=== PATIENT | male | born 1940 ===

== ENCOUNTER 2017-06-03 16:45 | Emergency (ER) | payer SELFPAY ==
[2017-06-03] MEDS ORDERED: LR(*) 1000 ML BAG 1,000 ML IV ONE (16:49)
[2017-06-03] MEDS ORDERED: ASPIRIN 81 MG CHEW PO ONE (16:50)
[2017-06-03] MEDS ORDERED: SODIUM BICARB 8.4% 50 MEQ/50ML IV ONE (16:55)
[2017-06-03] MEDS ORDERED: PROPOFOL(*)1000 MG/100 ML VIAL 100 ML IV PRN (16:55)
[2017-06-03 17:03] LABS: PLATELET COUNT, AUTOMATED 110 K/uL (150-450)
[2017-06-03] MEDS ORDERED: PROPOFOL EMUL 10MG/ML 20 ML VL IV ONE (17:05)
[2017-06-03] MEDS ORDERED: IOPAMIDOL 76% 100 ML INFUS BTL 100 ML ONE (17:07)
[2017-06-03] MEDS ORDERED: NS 0.9% 20 ML SDV 100 ML ONE (17:07)
--- NOTE | 2017-06-03 17:10 | ER Report ---
History and Physical Time Seen By MD: 16:50 HPI/ROS CHIEF COMPLAINT: cardiac arrest HISTORY OF PRESENT ILLNESS: EMS called for pt how collapsed and was unresponsive at [facility] station. CPR was started at scene. PT had no pulse on ems arrival. Otis tube was placed by ems, I/O and lucus for compressions. While pulling into ems bay pt started in VT. Pt was shocked with 200 J and then got a rhythm. PT intubated after succs placed. Pt then went back into VT which appeared to be torsodes like so magnesium was given and shocked at 300J. PT back in NSR in non specific junctional coduction delay. REVIEW OF SYSTEMS: Cardiac arrest. Past Medical/Surgical History unknown Reviewed Nurses Notes: Yes Old Medical Records Reviewed: Yes Social History of unknown Hx Smoking: No (unknwon) Constitutional Vital Sign - Last 24 Hours 06/03/17 06/03/17 06/03/17 06/03/17 17:00 17:38 17:38 17:44 B/P (MAP) 95/62 (73) 95/62 (73) 104/83 (90) FiO2 50.0 06/03/17 06/03/17 17:45 17:47 Pulse 89 B/P (MAP) 107/73 (84) Pulse Ox 93 Physical Exam General Appearance: The patient arrived purple faced and mottled. unresponsive being bagged and cpr Eyes: Pupils 1mm b/l ENT: no pharyngeal erythema or exudates,TM are nl b/l without hemotympanums Respiratory: breathsounds by bagging efrain symmetrical Cardiovascular: no pulse on arrival Gastrointestinal: Abdomen is soft and non tender, no masses Skin: mottled on arrival Neuro: GCS 5 DIFFERENTIAL DIAGNOSIS: After history and physical exam differential diagnosis was considered for cardiac arrest, pe, electrolyte abnl, aaa Medical Decision Making Data Points Result Diagram: 06/03/17 1802 06/03/17 180 Laboratory Hematology Test 06/03/17 16:49 06/03/17 17:06 06/03/17 17:35 06/03/17 18:02 Prothrombin Time 21.0 seconds (12.0-14.4) Prothromb Time International Ratio 1.77 Activated Partial Thromboplast Time 47 seconds (23-35) D-Dimer Quantitative (PE/DVT) 2.43 ug/ml (0-0.50) Total Bilirubin < 0.1 mg/dl (0.2-1.3) Aspartate Amino Transf (AST/SGOT) 15 U/L (0-35) Alanine Aminotransferase (ALT/SGPT) 32 U/L (0-56) Alkaline Phosphatase 32 U/L (0-126) B-Type Natriuretic Peptide 42 pg/ml (0-100) Total Protein 2.3 gm/dl (6.3-8.2) Albumin 1.1 g/dl (3.5-5.0) Whole Blood Glucose 204 mg/DL (75-110) Urine Color Yellow Urine Clarity Slightly-cloudy Urine pH 6.0 pH (4.8-9.5) Urine Specific [place] 1.011 Urine Protein 500 mg/dL (NEGATIVE) Urine Glucose (UA) 500 mg/dL (NEGATIVE) Urine Ketones Negative mg/dL (NEGATIVE) Urine Blood Small (NEGATIVE) Urine Nitrite Negative (NEGATIVE) Urine Bilirubin Negative (NEGATIVE) Urine Urobilinogen Negative mg/dL (0.2-1.9) Urine Leukocyte Esterase Negative (NEGATIVE) Urine RBC 9 /HPF (0-2/HPF) Urine WBC 11 /HPF (0-5/HPF) Urine Squamous Epithelial Cells Few /LPF (NONE-FEW) Urine Bacteria Negative /HPF (NONE-FEW) Urine Hyaline Casts Many /LPF (NONE-FEW) Urine Granular Casts Few /LPF (NONE) Urine Mucus None /HPF (NONE-FEW) Urine Opiates Screen Negative Urine Barbiturates Screen Negative Ur Tricyclic Antidepressants Screen Negative Urine Phencyclidine Screen Negative Urine Amphetamines Screen Negative Urine Benzodiazepines Screen Negative Urine Cocaine Screen Negative Urine Cannabinoids Screen Negative Red Blood Count 4.44 M/uL (4.00-5.60) Mean Corpuscular Volume 93.6 fL (80.0-96.0) Mean Corpuscular Hemoglobin 31.1 pg (26.0-33.0) Mean Corpuscular Hemoglobin Concent 33.3 g/dL (32.0-36.0) Red Cell Distribution Width 14.0 % (11.5-14.5) Mean Platelet Volume 8.7 fL (7.2-11.1) Neutrophils (%) (Auto) 80.3 % (39.4-72.5) Lymphocytes (%) (Auto) 11.2 % (17.6-49.6) Monocytes (%) (Auto) 6.8 % (4.1-12.4) Eosinophils (%) (Auto) 1.2 % (0.4-6.7) Basophils (%) (Auto) 0.5 % (0.3-1.4) Nucleated RBC Relative Count (auto) 0.1 /100WBC Neutrophils # (Auto) 11.9 K/uL (2.0-7.4) Lymphocytes # (Auto) 1.7 K/uL (1.3-3.6) Monocytes # (Auto) 1.0 K/uL (0.3-1.0) Eosinophils # (Auto) 0.2 K/uL (0.0-0.5) Basophils # (Auto) 0.1 K/uL (0.0-0.1) Nucleated RBC Absolute Count (auto) 0.01 K/uL Sodium Level 140 mmol/L (137-145) Potassium Level 3.8 mmol/L (3.5-5.0) Chloride Level 104 mmol/L (98-107) Carbon Dioxide Level 23 mmol/L (22-30) Blood Urea Nitrogen 15 mg/dl (9-21) Creatinine 1.00 mg/dl (0.66-1.25) Glomerular Filtration Rate Calc > 60.0 Random Glucose 146 mg/dl (75-110) Lactate 5.7 mmol/L (0.7-2.1) Calcium Level 9.1 mg/dl (8.4-10.2) Magnesium Level 2.1 mg/dl (1.7-2.2) Total Creatine Kinase 70 U/L (55-170) Creatine Kinase MB 41 U/L Creatine Kinase MB % 59 % Troponin I 0.087 ng/ml Test 06/03/17 18:18 Blood Gas Puncture Site Right radial Blood Gas Patient Temperature 39.4 DEGREES Arterial Blood pH 7.20 (7.35-7.45) Arterial Blood Partial Pressure CO2 55 mmHg (32-37) Arterial Blood Partial Pressure O2 118 mmHg (60-80) Arterial Blood HCO3 21 mmol/L (20-26) Arterial Blood Oxygen Saturation 97 % (92-100) Arterial Blood Base Excess -6.0 mmol/L Vinh Test Acceptable Oxygen Liters/Minute 100 Chemistry Test 06/03/17 16:49 06/03/17 17:06 06/03/17 17:35 06/03/17 18:02 Prothrombin Time 21.0 seconds (12.0-14.4) Prothromb Time International Ratio 1.77 Activated Partial Thromboplast Time 47 seconds (23-35) D-Dimer Quantitative (PE/DVT) 2.43 ug/ml (0-0.50) Total Bilirubin < 0.1 mg/dl (0.2-1.3) Aspartate Amino Transf (AST/SGOT) 15 U/L (0-35) Alanine Aminotransferase (ALT/SGPT) 32 U/L (0-56) Alkaline Phosphatase 32 U/L (0-126) B-Type Natriuretic Peptide 42 pg/ml (0-100) Total Protein 2.3 gm/dl (6.3-8.2) Albumin 1.1 g/dl (3.5-5.0) Whole Blood Glucose 204 mg/DL (75-110) Urine Color Yellow Urine Clarity Slightly-cloudy Urine pH 6.0 pH (4.8-9.5) Urine Specific [place] 1.011 Urine Protein 500 mg/dL (NEGATIVE) Urine Glucose (UA) 500 mg/dL (NEGATIVE) Urine Ketones Negative mg/dL (NEGATIVE) Urine Blood Small (NEGATIVE) Urine Nitrite Negative (NEGATIVE) Urine Bilirubin Negative (NEGATIVE) Urine Urobilinogen Negative mg/dL (0.2-1.9) Urine Leukocyte Esterase Negative (NEGATIVE) Urine RBC 9 /HPF (0-2/HPF) Urine WBC 11 /HPF (0-5/HPF) Urine Squamous Epithelial Cells Few /LPF (NONE-FEW) Urine Bacteria Negative /HPF (NONE-FEW) Urine Hyaline Casts Many /LPF (NONE-FEW) Urine Granular Casts Few /LPF (NONE) Urine Mucus None /HPF (NONE-FEW) Urine Opiates Screen Negative Urine Barbiturates Screen Negative Ur Tricyclic Antidepressants Screen Negative Urine Phencyclidine Screen Negative Urine Amphetamines Screen Negative Urine Benzodiazepines Screen Negative Urine Cocaine Screen Negative Urine Cannabinoids Screen Negative White Blood Count 14.8 k/uL (4.5-11.0) Red Blood Count 4.44 M/uL (4.00-5.60) Hemoglobin 13.8 g/dL (14.0-18.0) Hematocrit 41.6 % (42.0-52.0) Mean Corpuscular Volume 93.6 fL (80.0-96.0) Mean Corpuscular Hemoglobin 31.1 pg (26.0-33.0) Mean Corpuscular Hemoglobin Concent 33.3 g/dL (32.0-36.0) Red Cell Distribution Width 14.0 % (11.5-14.5) Platelet Count 188 K/uL (150-450) Mean Platelet Volume 8.7 fL (7.2-11.1) Neutrophils (%) (Auto) 80.3 % (39.4-72.5) Lymphocytes (%) (Auto) 11.2 % (17.6-49.6) Monocytes (%) (Auto) 6.8 % (4.1-12.4) Eosinophils (%) (Auto) 1.2 % (0.4-6.7) Basophils (%) (Auto) 0.5 % (0.3-1.4) Nucleated RBC Relative Count (auto) 0.1 /100WBC Neutrophils # (Auto) 11.9 K/uL (2.0-7.4) Lymphocytes # (Auto) 1.7 K/uL (1.3-3.6) Monocytes # (Auto) 1.0 K/uL (0.3-1.0) Eosinophils # (Auto) 0.2 K/uL (0.0-0.5) Basophils # (Auto) 0.1 K/uL (0.0-0.1) Nucleated RBC Absolute Count (auto) 0.01 K/uL Glomerular Filtration Rate Calc > 60.0 Lactate 5.7 mmol/L (0.7-2.1) Calcium Level 9.1 mg/dl (8.4-10.2) Magnesium Level 2.1 mg/dl (1.7-2.2) Total Creatine Kinase 70 U/L (55-170) Creatine Kinase MB 41 U/L Creatine Kinase MB % 59 % Troponin I 0.087 ng/ml Test 06/03/17 18:18 Blood Gas Puncture Site Right radial Blood Gas Patient Temperature 39.4 DEGREES Arterial Blood pH 7.20 (7.35-7.45) Arterial Blood Partial Pressure CO2 55 mmHg (32-37) Arterial Blood Partial Pressure O2 118 mmHg (60-80) Arterial Blood HCO3 21 mmol/L (20-26) Arterial Blood Oxygen Saturation 97 % (92-100) Arterial Blood Base Excess -6.0 mmol/L Vinh Test Acceptable Oxygen Liters/Minute 100 Coagulation Test 06/03/17 16:49 Prothrombin Time 21.0 seconds Prothromb Time International Ratio 1.77 Activated Partial Thromboplast Time 47 seconds D-Dimer Quantitative (PE/DVT) 2.43 ug/ml Toxicology Test 06/03/17 17:35 Urine Opiates Screen Negative Urine Barbiturates Screen Negative Ur Tricyclic Antidepressants Screen Negative Urine Phencyclidine Screen Negative Urine Amphetamines Screen Negative Urine Benzodiazepines Screen Negative Urine Cocaine Screen Negative Urine Cannabinoids Screen Negative Urinalysis Test 06/03/17 17:35 Urine Color Yellow Urine Clarity Slightly-cloudy Urine pH 6.0 pH (4.8-9.5) Urine Specific [place] 1.011 Urine Protein 500 mg/dL (NEGATIVE) Urine Glucose (UA) 500 mg/dL (NEGATIVE) Urine Ketones Negative mg/dL (NEGATIVE) Urine Blood Small (NEGATIVE) Urine Nitrite Negative (NEGATIVE) Urine Bilirubin Negative (NEGATIVE) Urine Urobilinogen Negative mg/dL (0.2-1.9) Urine Leukocyte Esterase Negative (NEGATIVE) Urine RBC 9 /HPF (0-2/HPF) Urine WBC 11 /HPF (0-5/HPF) Urine Squamous Epithelial Cells Few /LPF (NONE-FEW) Urine Bacteria Negative /HPF (NONE-FEW) Urine Hyaline Casts Many /LPF (NONE-FEW) Urine Granular Casts Few /LPF (NONE) Urine Mucus None /HPF (NONE-FEW) EKG/Imaging Imaging initial ekg: nsr @ 98 with non specific sg wave changes and incomplete interventricular conduction delay leaning towards lbbb. CXR tube in place about 1-2 cm above the maribell, will move back 1cm. ED Course/Re-evaluation Clinical Indication for ER IV: IV Access ED Course Pt intubated on arrival using succs 7.5 et tube 23 at lip and good breath sounds b/l Code was started. Pt recieved total of two epi shocked twice. Magnesium and bicarb. pulse came back. ekg obtained. Pt sent to CT. R femoral central line placed under semi-sterile area due to code. all lines flushed without difficulty. 06/03/2017 5:27:[address] life flight they are flying to [place]. will check to see if [place] has a icu bed. 06/03/2017 6:14:21 pm Spoke with [facility] who would not accept pt unless we had repeat bmp and all the cat scan results. Would like to be called back. Called Dr. Ortega at [facility] critical care who will accept pt now. Will attempt to fly. 06/03/2017 6:22:24 pm Currently no one is flying helicopter or fixed wing. Nursing production department supervisor made aware and finding transport. 06/03/2017 6:34:40 pm repeat bmp is normal. I suspect initial labs drawn in code were drawn in saline line. All new blood sent to lab 06/03/2017 6:39:42 pm multiple attempts to obtain ekg was unsuccessful due to pt moving. Propofol was changed to ketamine due to pts pressure on propofol. Ketamine drip ordered. will give a dose vecuronium to paralyse for transport as well as to obtain ekg now. 06/03/2017 6:50:47 pm Repeat ekg after vecuronium was give showed: nsr @ 90 with non specific stwave changes. Nursing production department supervisor found a nurse for transport. awaiting ems arrival for pt to be transfered. 06/03/2017 6:56:23 pm CTA chest limited due to movement but no obvious aneurysm or pe 06/03/2017 7:24:[address] Ortega from [facility]. reviewed the repeat labs, ekg and ct results. He recommend hold off on the heparin gtt. bolus and gtt held. EMS here and pt is being brought by [facility] via ambulance due to inclement weather with flying. 06/03/2017 7:31:26 pm Spoke with sister, Korin Valadez at is aware he is critical. THey live in [place]. Home Cell Decision to Disposition Date: Jun 03, 2017 Decision to Disposition Time: 19:33 Critical Care Time I spent a total of 60 minutes of critical care time in obtaining history, performing a physical exam, bedside monitoring of interventions, collecting and interpreting tests and discussion with consultants but not including time spent performing procedures. Depart Departure Latest Vital Signs Vital Signs Date Time Temp Pulse Resp B/P (MAP) Pulse Ox O2 Delivery O2 Flow Rate FiO2 06/03/17 17:47 107/73 (84) 06/03/17 17:45 89 93 06/03/17 17:00 50.0 Impression: Primary Impression: Cardiac arrest Condition: Critical Disposition: [facility] TO [facility] OMAR EVANS DO Jun 03, 2017 17:10
[2017-06-03] MEDS ORDERED: KCL (*) 20 MEQ/100 ML PREMIX 100 ML IV ONE (17:20)
[2017-06-03] MEDS ORDERED: CALCIUM CL 100 MG/1 ML SYR 1,000 MG in NS(*) 0.9% 100 ML BAG 100 ML IVPB ONE (17:20)
[2017-06-03 17:27] LABS: INR 1.77
[2017-06-03] MEDS ORDERED: KETAMINE HCL 500 MG/5 ML VIAL ONE (18:03)
[2017-06-03] MEDS ORDERED: KETAMINE HCL 200 MG/20 ML MDV IVP ONE (18:05)
--- NOTE | 2017-06-03 18:07 | RADIOLOGY IMAGING REPORT ---
FACILITY: [facility] PATIENT NAME: Husam Dela Cruz : 1940 MR: [id number] V: [id number] EXAM DATE: ORDERING PHYSICIAN: OMAR EVANS TECHNOLOGIST: Location: [facility] Patient: Husam Dela Cruz : 1940 Visit/Account:[id number] Date of Sevice: 06/03/2017 EXAMINATION: Portable AP Chest HISTORY: Chest pain. COMPARISON: None. FINDINGS: Endotracheal tube present, with tip approximately 2 cm above the maribell. Normal and symmetric lung volumes. There are fibrotic appearing interstitial changes bilaterally. No focal consolidation or pleural effusion. No pneumothorax. Borderline cardiac enlargement, with normal cardiomediastinal contours. Aortic calcification. IMPRESSION: 1. Endotracheal tube tip approximately 2 cm above the maribell. 2. Fibrotic appearing interstitial changes in both lungs. No focal consolidation. Report Dictated By: Mynor Brady MD at 06/03/2017 6:00 PM Report E-Signed By: Mynor Brady MD at 06/03/2017 6:02 PM WSN:[id number]
[2017-06-03] MEDS ORDERED: KETAMINE HCL(*)500MG/5ML VIAL 500 MG in NS(*) 0.9% 500 ML BAG 495 ML IVPB ONE (18:15)
[2017-06-03] MEDS ORDERED: NS(*) 0.9% 500 ML BAG 500 ML IV ONE (18:20)
[2017-06-03] MEDS ORDERED: KETAMINE HCL 500 MG/5 ML VIAL IVP ONE (18:20)
--- NOTE | 2017-06-03 18:33 | RADIOLOGY IMAGING REPORT ---
FACILITY: [facility] PATIENT NAME: Husam eDla Cruz : 1940 MR: [id number] V: [id number] EXAM DATE: ORDERING PHYSICIAN: OMAR EVANS TECHNOLOGIST: Location: [facility] [place] Patient: Husam Dela Cruz : 1940 Visit/Account:[id number] Date of Sevice: 06/03/2017 EXAMINATION: Head CT without intravenous contrast HISTORY: Cardiac arrest. Fell. Hit head. COMPARISON: None. TECHNIQUE: Contiguous axial images were obtained from the skull base to the vertex without intraven ous contrast. Sagittal and coronal reformatted images are also submitted. One of the following dose optimization techniques was utilized in the performance of this exam: Autom ated exposure control; adjustment of the mA and/or kV according to the patient's size; or use of an i terative reconstruction technique. Specific details can be referenced in the facility's radiology C T exam operational policy. FINDINGS: Brain and intracranial structures: Ventricles, sulci, and cisterns are normal in size. Caal-white ma tter differentiation is maintained. No midline shift, acute hemorrhage, acute infarct, or mass. Vessels: Mild calcifications of the carotid siphons and right vertebral artery. Calvarium / scalp: Right parietal-occipital scalp hematoma. No acute fracture. Skull base / visualized face: Endotracheal tube is partially visualized. Mild rightward deviation of the nasal septum. Visualized sinuses / orbits: Trace mucosal thickening in the ethmoid air cells. The lenses have been extracted or replaced. IMPRESSION: Right parietal-occipital scalp hematoma. No acute intracranial abnormality. Report Dictated By: Darrius Weiner MD at 06/03/2017 6:23 PM Report E-Signed By: Darrius Weiner MD at 06/03/2017 6:28 PM WSN:[id number]
--- NOTE | 2017-06-03 18:37 | RADIOLOGY IMAGING REPORT ---
FACILITY: [facility] [place] PATIENT NAME: Husam Dela Cruz : 1940 MR: [id number] V: [id number] EXAM DATE: ORDERING PHYSICIAN: OMAR EVANS TECHNOLOGIST: Location: [facility] Patient: Husam Dela Cruz : 1940 Visit/Account:[id number] Date of Sevice: 06/03/2017 EXAMINATION: CT Cervical spine without intravenous contrast HISTORY: Cardiac arrest. Fell, hit head. COMPARISON: None. TECHNIQUE: Axial images were obtained from the skull base through the upper thoracic spine without I V contrast administration. Coronal and sagittal reformatted images were obtained from the axial [facility] e data. One of the following dose optimization techniques was utilized in the performance of this exam: Autom ated exposure control; adjustment of the mA and/or kV according to the patient's size; or use of an i terative reconstruction technique. Specific details can be referenced in the facility's radiology C T exam operational policy. FINDINGS: Alignment: Slight anterolisthesis of C3 on C4 and of C6 on C7, likely on a degenerative basis. Cranio-cervical junction: Osteophytes at the atlantodental articulation. Vertebral bodies: No evidence of acute fracture. Posterior elements: Facet hypertrophy throughout the cervical spine. No acute fracture. Hardware: Endotracheal tube is partially visualized. Disc Spaces: Endplate osteophytes at multiple levels. Soft tissues: No paraspinal soft tissue swelling or hematoma. Right occipital scalp hematoma. Calcifi ed plaque at the carotid bifurcations. Visualized upper chest: Calcified plaque at the aortic arch. Chronic interstitial changes in the lung s. IMPRESSION: No acute fracture of the cervical spine. Multilevel degenerative changes in the cervical spine. Report Dictated By: Darrius Weiner MD at 06/03/2017 6:28 PM Report E-Signed By: Darrius Weiner MD at 06/03/2017 6:34 PM WSN:[id number]
[2017-06-03] MEDS ORDERED: VECURONIUM BROM(*) 10 MG/VIAL 10 MG in NS(*) 0.9% 100 ML BAG 100 ML IV ONE ×2 (18:40→19:15)
[2017-06-03 18:42] LABS: PLATELET COUNT, AUTOMATED 188 K/uL (150-450)
--- NOTE | 2017-06-03 18:49 | RADIOLOGY IMAGING REPORT ---
FACILITY: [facility] [place] PATIENT NAME: Husam Dela Cruz : 1940 MR: [id number] V: [id number] EXAM DATE: ORDERING PHYSICIAN: OMAR EVANS TECHNOLOGIST: [place] [facility] [place]: Husam Dela Cruz : 1940 Visit/Account:[id number] Date of Sevice: 06/03/2017 CT ANGIOGRAM OF THE CHEST WITH INTRAVENOUS CONTRAST, PE PROTOCOL DATE OF EXAM: 06/03/2017 17:00 COMPARISON: Chest radiograph of the same day. INDICATION: cardiac arrest. TECHNIQUE: Contrast enhanced chest CT performed during the injection of 100 ml of Isovue-370. Three- dimensional (MIP) reconstructions were performed. FINDINGS: Imaging is degraded by motion, but there is no apparent pulmonary trochanter filling defect. Diffuse bronchial wall thickening. Atelectasis dependently. There is subpleural reticulation/cystic change in the upper lobes. Thyroid: Incompletely imaged. Thoracic inlet: No adenopathy. The endotracheal tube terminates above the maribell. Heart and great vessels: Heart size is normal. Coronary atherosclerosis is most prominent in the LAD but is also conspicuous in the right coronary artery and LCx. Mediastinum and yarelis: Mild thickening at the yarelis is nonspecific. Lungs and pleura: As above. Breast and axilla: Breast tissue is unremarkable by CT. Bones and soft tissues: No acute osseous abnormality. Upper abdomen: Unremarkable. IMPRESSION: Imaging somewhat limited by motion but no apparent pulmonary arterial embolus. One of the following dose optimization techniques was utilized in the performance of this exam: Autom ated exposure control; adjustment of the mA and/or kV according to the patient's size; or use of an i terative reconstruction technique. Specific details can be referenced in the facility's radiology C T exam operational policy. Report Dictated By: Naveed Montemayor MD at 06/03/2017 6:31 PM Report E-Signed By: Naveed Montemayor MD at 06/03/2017 6:44 PM WSN:[id number]
[2017-06-03] MEDS ORDERED: PIPERACILLIN/TAZO*3.375GM VIAL 3.375 GM in NS(*) 0.9% 100 ML ADDVANT BAG 100 ML IVPB ONE (18:55)
--- NOTE | 2017-06-03 19:00 | EKG ---
FACILITY: [facility] PATIENT NAME: ALYSIA GILES : [id number] MR: [id number] V: [id number] EXAM DATE: ORDERING PHYSICIAN: OMAR EVANS TECHNOLOGIST: LEON Test Reason : REPEAT Blood Pressure : / mmHG Vent. Rate : 091 BPM Atrial Rate : 091 BPM P-R Int : 176 ms QRS Dur : 116 ms QT Int : 408 ms P-R-T Axes : 042 028 221 degrees QTc Int : 501 ms Sinus rhythm with premature supraventricular complexes Possible Inferior infarct , age undetermined Cannot rule out Anterior infarct (cited on or before 03-JUN-2017) ST and T wave abnormality, consider lateral ischemia Prolonged QT Abnormal ECG When compared with ECG of 03-JUN-2017 17:39, Relatively unchanged Confirmed by TARAN GRIER ([id number]) on 06/03/2017 9:05:06 PM Referred By: CRISTINA Confirmed By:TARAN GRIRE
--- NOTE | 2017-06-03 19:01 | EKG ---
FACILITY: [facility] PATIENT NAME: ALYSIA GILES : [id number] MR: [id number] V: [id number] EXAM DATE: ORDERING PHYSICIAN: OMAR EVANS TECHNOLOGIST: LEON Test Reason : CARDIAC ARREST Blood Pressure : / mmHG Vent. Rate : 098 BPM Atrial Rate : 098 BPM P-R Int : 170 ms QRS Dur : 122 ms QT Int : 374 ms P-R-T Axes : 045 056 197 degrees QTc Int : 477 ms Sinus rhythm with occasional premature ventricular complexes Left bundle branch block Nonspecific ST and T wave abnormality Abnormal ECG No previous ECGs available Confirmed by TARAN GRIER ([id number]) on 06/03/2017 8:57:36 PM Referred By: SHIRA Confirmed By:TARAN GRIER
--- NOTE | 2017-06-03 19:01 | EKG ---
FACILITY: [facility] PATIENT NAME: ALYSIA GILES : [id number] MR: [id number] V: [id number] EXAM DATE: ORDERING PHYSICIAN: OMAR EVANS TECHNOLOGIST: LEON Test Reason : REPEAT Blood Pressure : / mmHG Vent. Rate : 089 BPM Atrial Rate : 089 BPM P-R Int : 174 ms QRS Dur : 122 ms QT Int : 388 ms P-R-T Axes : 050 032 243 degrees QTc Int : 472 ms Normal sinus rhythm Cannot rule out Anterior infarct (cited on or before 03-JUN-2017) T wave abnormality, consider lateral ischemia Abnormal ECG When compared with ECG of 03-JUN-2017 18:02, Relatively unchanged Confirmed by TARAN GRIER ([id number]) on 06/03/2017 9:12:01 PM Referred By: CRISTINA Confirmed By:TARAN GRIER
--- NOTE | 2017-06-03 19:04 | RADIOLOGY IMAGING REPORT ---
FACILITY: [facility] PATIENT NAME: Husam Dela Cruz : 1940 MR: [id number] V: [id number] EXAM DATE: ORDERING PHYSICIAN: OMAR EVANS TECHNOLOGIST: Location: [facility] [place] Patient: Husam Dela Cruz : 1940 Visit/Account:[id number] Date of Sevice: 06/03/2017 COMPUTED TOMOGRAPHY OF THE Abdomen and Pelvis with CONTRAST INDICATION: Cardiac arrest. TECHNIQUE: Contiguous axial 3.[address] images were obtained through the abdomen and pelvis after the administration of 100 cc Isovue-370. Coronal and sagittal reformatted images were submitted. COMPARISON: None. FINDINGS: Lung bases: See prior CT imaging of the chest. Liver and hepatic vasculature: Smooth liver surface. No ascites. No pneumobilia or portal venous gas . Gallbladder and bile ducts: Normal Spleen: Normal Pancreas: Normal Adrenals: Normal adrenals. Kidneys, ureters and bladder: Symmetric renal enhancement. Small left renal cyst. The bladder is dec ompressed with a Alonso catheter. Retroperitoneum and aorta: Scattered aortic atherosclerosis. An infrarenal aortic aneurysm measures 5.9 cm in diameter just above the iliac bifurcation. GI tract, mesentery and peritoneum: No free fluid or free air. No bowel obstruction. There are maia us sigmoid diverticula. Normal appendix. Prostate: Unremarkable Bones and soft tissues: No acute osseous abnormality. Severe low lumbar facet arthropathy. IMPRESSION: 1. Infrarenal aortic aneurysm just above the iliac bifurcation measures 5.9 cm diameter. 2. No evidence of acute intra-abdominal abnormality. 3. Diverticulosis without findings of diverticulitis. Results were called to Dr. OMAR EVANS at 06/03/2017 6:57 PM. One of the following dose optimization techniques was utilized in the performance of this exam: Autom ated exposure control; adjustment of the mA and/or kV according to the patient's size; or use of an i terative reconstruction technique. Specific details can be referenced in the facility's radiology C T exam operational policy. Report Dictated By: Naveed Montemayor MD at 06/03/2017 6:50 PM Report E-Signed By: Naveed Montemayor MD at 06/03/2017 7:00 PM WSN:[id number]
[2017-06-03] MEDS ORDERED: LEVOPHED KIT (*) 1 IVSOL 0 KIT IV ONE (19:13)
[2017-06-03] MEDS ORDERED: VECURONIUM IV ONE (19:13)
[2017-06-03] MEDS ORDERED: HEPARIN (PORC) 5000 UN/ML VIAL IVP ONE (19:15)
[2017-06-03] MEDS ORDERED: HEPARIN* SOD/D5W 25000 U/500ML 500 ML IV ONE (19:15)
[2017-06-03] MEDS ORDERED: PROPOFOL(*)1000 MG/100 ML VIAL 100 ML ONE (19:15)
[2017-06-03] MEDS ORDERED: NS(*) 0.9% 10 ML VIAL 0 ML ONE (19:19)
[2017-06-03 19:20] VITALS: BP 149/105
== END 2017-06-03 19:59 | disposition short-term general hospital (02) ==
LOC: ER 16:48
DX: I46.9 Cardiac arrest, cause unspecified (principal); R94.31 Abnormal electrocardiogram [ECG] [EKG]; K57.30 Diverticulosis of large intestine without perforation or abscess without bleeding; I70.0 Atherosclerosis of aorta; S00.03XA Contusion of scalp, initial encounter
CPT/HCPCS: 31500; 36416; 36556; 36600; 70450; 71045; 71275; 72125; 74177; 80305; 81001; 82553; 82803; 82948; 83605; 83735; 83880; 84484; 85025; 85379; 85610; 85730; 87040; 92950; 93005; 94002; 94770; 99291; C1758; J0171; J3475; J3490; J7050; Q9967; 82040; 82247; 82310; 82374; 82435; 82565; 82947; 84075; 84132; 84155; 84295; 84450; 84460; 84520; 99285

== ENCOUNTER → 2017-06-03 | Outpatient (CLI) | payer SELFPAY | LOC: AMB 16:16 | PROVIDERS: ATTEND Nurse Practitioner | DX: I46.9 Cardiac arrest, cause unspecified (principal) | CPT/HCPCS: A0425; A0433 ==

== ENCOUNTER → 2017-06-03 | Outpatient (CLI) | payer SELFPAY | LOC: AMB 19:10 | PROVIDERS: ATTEND Nurse Practitioner | DX: I46.9 Cardiac arrest, cause unspecified (principal); Z99.11 Dependence on respirator [ventilator] status | CPT/HCPCS: A0425; A0434 ==